=== PATIENT | male | born 1960 | race Caucasian/White ===

== ENCOUNTER 2021-03-02 10:25 | Day surgery (SDC) | payer BC ==
[~2021-03-02] VITALS: Ht 172.7 cm; Wt 78.7 kg
[~2021-03-02 10:25] MED LIST: ACID REDUCER200 MG PO; CEPHALEXIN500 M1 PO; CRESTOR 10MG10 MG PO; DEXILANT60 MG PO; FISH OIL SUPER1 SGL PO; GLUCOPHAGE850 MG/TAB PO; GLUCOSAMINE & C1 CA1 PO; LAMISIL250 M1 PO; LEXAPRO 10MG10 MG PO; LIPITOR20 MG PO; MULTIPLE VITAMI1 CAP PO; NORCO 325 MG-7.1 TAB PO; OMNICEF 300MG300 MG PO; VITAMIN D31000 I1 PO; VITAMIN D32000 I1 PO
[2021-03-02] MEDS ORDERED: PROTONIX 40MG T40 MG PO (10:37)
[2021-03-02] MEDS ORDERED: OMEGA-3 1000 MG1 CAP PO (10:38)
[2021-03-02] MEDS ORDERED: VITAMIN D31000 I1 PO (10:39)
[2021-03-02] MEDS ORDERED: COMPLETE MULTI1 TAB PO (10:39)
[2021-03-02 11:05] VITALS: BP 123/89; PULSE 80; TEMP 97
[2021-03-02 12:20] VITALS: BP 119/77; PULSE 74
--- NOTE | 2021-03-02 12:20 | NUR ---
Patient arrived back into [facility] from endo procedure. Patient awake and alert. Requesting diet pepsi and saltines. Report received from JADA Ro.
[2021-03-02 12:35] VITALS: BP 118/80; PULSE 70
--- NOTE | 2021-03-02 12:35 | NUR ---
Patient tolerated food and drink well with no complaint of nausea or emesis. Patient denies pain and continues to do well.
[2021-03-02 12:50] VITALS: BP 127/90; PULSE 64; TEMP 97.3
--- NOTE | 2021-03-02 12:50 | NUR ---
MD in to see patient. Patient tolerated food and drink. Denies nausea or pain.
--- NOTE | 2021-03-02 12:55 | NUR ---
Went through discharge instructions with patient. Questions answered. Patient verbalized understanding to education. IV removed with no complications. Patient got dressed independently. notified via telephone that patient is ready to be discharged.
--- NOTE | 2021-03-02 13:05 | NUR ---
Patient escorted to patient entrance by radha Darden. Patient refusing to use wheelchair. met patient by patient entrance and patient left in the care of his .
== END 2021-03-02 13:05 | disposition home or self-care (01) ==
LOC: SDCO 10:25
DX: Z12.11 Encounter for screening for malignant neoplasm of colon (principal); K21.9 Gastro-esophageal reflux disease without esophagitis; K22.70 Barrett's esophagus without dysplasia; K29.80 Duodenitis without bleeding; E78.5 Hyperlipidemia, unspecified; G89.29 Other chronic pain; M54.9 Dorsalgia, unspecified; E11.9 Type 2 diabetes mellitus without complications; F32.A Depression, unspecified; Z79.899 Other long term (current) drug therapy
CPT/HCPCS: J2704; J7030